=== PATIENT | female | born 1955 | race African-American/Black ===

== ENCOUNTER → 2023-11-25 | Day surgery (SDC) | payer MEDICARE, MEDICAID ==
[~2023-11-25] VITALS: Ht 160 cm; Wt 66.7 kg
[~2023-11-25] MED LIST: AMLO10TA80 PO; BUPIVACAINE HCL/PF 0.5% (5MG/ML) 10ML ONE; CALC-700 PO; CARI350T28 PO; DEXAMETHASONE 4MG/ML 1ML VIAL ONE; DIPH25CA83 PO; FENTANYL CITRATE/PF 50MCG/ML 2ML VIAL ONE; GLYCOPYRROLATE 0.2 MG/ML 2ML VIAL ONE; HYDR-4001 PO; HYDR-523 PO; HYDROMORPHONE HCL/PF 1MG/ML INJ IV PRN; LIDOCAINE HCL 1% 10 MG/ML 10ML VIAL ONE; MELO-104 PO; ONDANSETRON HCL 4MG/2ML INJ IV PRN; ONDANSETRON HCL 4MG/2ML INJ ONE; POLYMYXIN B SULFATE 500000 UNITS/VIAL ONE; PROPOFOL 200MG/20ML VIAL IV ONE; ROCURONIUM BROMIDE 10MG/ML VIAL 5ML IV ONE; SKIN ADHESIVE 0.7 GM EA TOP ONE; SUGAMMADEX SODIUM 200MG/2ML VIAL IV ONE
[2023-11-25] MEDS: LACTATED RINGERS 1,000 ML IV SCH (07:09)
[2023-11-25] MEDS: FENTANYL CITRATE/PF 50MCG/ML 2ML VIAL IV PRN (09:22)
[2023-11-25 11:39] VITALS: BP 138/76; PULSE 63; RESP 17
[2023-11-25] MEDS: ACETAMINOPHEN WITH CODEINE 300/30MG TABLET PO NR (11:39)
== END | disposition home or self-care (01) ==
LOC: OR 06:08
PROVIDERS: ATTEND Surgery
DX: K40.90 Unilateral inguinal hernia, without obstruction or gangrene, not specified as recurrent (principal); I10 Essential (primary) hypertension; M81.0 Age-related osteoporosis without current pathological fracture; F17.210 Nicotine dependence, cigarettes, uncomplicated; Z79.899 Other long term (current) drug therapy; Z98.890 Other specified postprocedural states
CPT/HCPCS: 49505; J3010; J3490 ×5; J1100; J2405; J2704; C1781